=== PATIENT | female | born 1970 | race Caucasian/White ===

== ENCOUNTER → 2016-09-26 | Outpatient (CLI) | payer OTHER ==
[~2016-09-26] MED LIST: DICL75TA PO; FERR1TAB36 PO; FERR324T4 PO; GABA100C4 PO; GNP5TAB6 PO; HYDR-3580 PO; LACTCAP8 PO; LISI10TA3 PO; LOPE2CAP PO; MAPA500T13 PO; MEDR10TA7 PO; OMEP20TA PO; OXYC1TAB63 PO; PRAV20TA2 PO; PRIL20CA9 PO
[2016-09-26 09:40] LABS: HDL CHOLESTEROL 42.6 MG/DL (40.0-60.0)
== END ==
LOC: CLAB 08:07
PROVIDERS: ATTEND Family Medicine
DX: E78.5 Hyperlipidemia, unspecified (principal)
CPT/HCPCS: 36415; 80061

== ENCOUNTER → 2016-12-03 | Outpatient (CLI) | payer OTHER ==
--- NOTE | 2016-12-03 17:02 | RADRPT ---
EXAM DATE/TIME: 12/03/2016 14:10 [place] COMPARISON: No previous studies available for comparison. INDICATIONS : Evaluate for pneumonia, pneumothorax, and communicable disease. Pre-op hysterectomy. MEDICAL HISTORY : None. SURGICAL HISTORY : None. ENCOUNTER: Initial ACUITY: 1 day PAIN SCORE: 0/10 LOCATION: Bilateral chest FINDINGS: PA and lateral views of the chest demonstrate the lungs to be symmetrically aerated without evidence of mass, infiltrate or effusion. The cardiomediastinal contours are unremarkable. Osseous structure s are intact. CONCLUSION: The lungs are clear. Rakan Webster MD on December 03, 2016 at 17:00 Board Certified Radiologist. This report was verified electronically.
--- NOTE | 2016-12-03 23:38 | EKG ---
Date Performed: 12/03/2016 Time Performed: 13:48:04 PTAGE: 46 years EKG: Sinus rhythm LOW QRS VOLTAGE IN PRECORDIAL LEADS BORDERLINE ECG PREVIOUS TRACING : 04/15/2016 11.26 Compared to prior tracing no significant change DOCTOR: Martin Chin Interpretating Date/Time 12/03/2016 23:36:55
== END ==
LOC: HCAV 12:54
PROVIDERS: ATTEND Family Medicine
DX: Z01.818 Encounter for other preprocedural examination (principal); R94.31 Abnormal electrocardiogram [ECG] [EKG]
CPT/HCPCS: 71020; 93005

== ENCOUNTER → 2017-01-17 | Outpatient (CLI) | payer OTHER ==
[~2017-01-17] MED LIST changes: -LACTCAP8 PO
[2017-01-17 14:07] LABS: AUTOMATED NEUTROPHIL # 5.2 TH/MM3 (1.8-7.7); BASOPHIL % 0.7 % (0.0-2.0); EOSINOPHIL % 0.6 % (0.0-4.0); HEMATOCRIT 39.7 % (35.0-46.0); HEMO FLAGS DIFF FINAL; LYMPH % 22.8 % (9.0-44.0); LYMPHOCYTE # 1.7 TH/MM3 (1.0-4.8); MEAN CELL VOLUME 82.6 FL (80.0-100.0); MEAN CORPUSCULAR HEMOGLOBIN 27.5 PG (27.0-34.0); MEAN CORPUSCULAR HGB CONC 33.3 % (32.0-36.0); MONO % 4.2 % (0.0-8.0); NEUT % 71.7 % (16.0-70.0); PLATELET COUNT 221 TH/MM3 (150-450); RED BLOOD COUNT 4.81 MIL/MM3 (4.00-5.30); WHITE BLOOD COUNT 7.3 TH/MM3 (4.0-11.0)
[2017-01-17 14:19] LABS: APTT (PATIENT) 27.6 SEC (24.3-30.1); PROTHROMBIN TIME - PATIENT 11.1 SEC (9.8-11.6)
[2017-01-17 14:34] LABS: ANION GAP 10 MEQ/L (5-15); AST (GOT) 12 U/L (15-37); BICARBONATE 23.1 MEQ/L (21.0-32.0); BLOOD UREA NITROGEN 13 MG/DL (7-18); CHLORIDE 104 MEQ/L (98-107); GLOMERULAR FILTRATION RATE 84 ML/MIN (>89); GLUCOSE,FASTING 81 MG/DL (74-99); POTASSIUM 3.8 MEQ/L (3.5-5.1); SODIUM (NA) 137 MEQ/L (136-145)
[2017-01-17 14:35] LABS: ALT (GPT) 23 U/L (10-53)
[2017-01-17 14:39] LABS: ALKALINE PHOSPHATASE 69 U/L (45-117); TOTAL BILIRUBIN ADULT 0.5 MG/DL (0.2-1.0)
[2017-01-17 14:40] LABS: BHCG SCREEN QUALITATIVE LESS THAN 1 MIU/ML (0-5)
== END ==
LOC: CLAB 13:27
PROVIDERS: ATTEND Obstetrics & Gynecology Gynecologic Oncology
DX: Z01.818 Encounter for other preprocedural examination (principal)
CPT/HCPCS: 36415; 80053; 84703; 85025; 85610; 85730

== ENCOUNTER → 2017-01-22 | Outpatient (CLI) | payer OTHER ==
[2017-01-22 09:42] LABS: HDL CHOLESTEROL 26.7 MG/DL (40.0-60.0)
== END ==
LOC: CLAB 08:54
PROVIDERS: ATTEND Nurse Practitioner Family
DX: E78.5 Hyperlipidemia, unspecified (principal)
CPT/HCPCS: 36415; 80061

== ENCOUNTER 2017-01-27 05:32 | Observation (INO) | payer OTHER ==
[~2017-01-27] VITALS: Ht 157.5 cm; Wt 122.4 kg
[2017-01-27] VITALS (7 sets, daily range): BP systolic 99–132; BP diastolic 61–74; PULSE 70–94; RESP 16–20; TEMP 97–98.9; O2SAT 95–98
[~2017-01-27 05:32] MED LIST changes: -FERR1TAB36 PO; -OXYC1TAB63 PO; -PRIL20CA9 PO
[2017-01-27] MEDS ORDERED: ceFAZolin 2 GM PREMIX 50 ML IV SCH (06:15)
[2017-01-27] MEDS ORDERED: HEPARIN SODIUM - SQ 10,000 UNITS/ML VIAL SQ SCH (06:15)
[2017-01-27] MEDS ORDERED: POVIDONE IODINE 5% (ANTISEPSIS KIT) 4 APPLICATIONS EACH NARE PRN (06:30)
[2017-01-27] MEDS ORDERED: INSULIN HUMAN REGULAR 1,000 UNITS/10 ML VIAL SQ PRN (06:30)
[2017-01-27] MEDS ORDERED: LACTATED RINGER'S 1000 ML IV PRN (06:30)
[2017-01-27] MEDS ORDERED: SODIUM CHLORID 0.9% 500 ML IV PRN (06:30)
[2017-01-27] MEDS ORDERED: CHLORHEXIDINE GLUCONATE 2 % 1 PACK (2 CLOTHS) TOPICAL PRN (06:30)
[2017-01-27] MEDS ORDERED: METOPROLOL TARTRATE 25 MG TAB PO PRN (06:30)
[2017-01-27] MEDS ORDERED: LIDOCAINE 2%/EPINEPHrine 1:100,000 30ML MDV ONE (07:04)
[2017-01-27] MEDS ORDERED: APREPITANT 40 MG CAP ONE (07:08)
[2017-01-27] MEDS ORDERED: MIDAZOLAM HCL 2 MG/2 ML VIAL ONE (07:17)
[2017-01-27] MEDS ORDERED: fentaNYL CITRATE 250 MCG/5 ML AMP ONE ×3 (07:17→12:08)
[2017-01-27] MEDS ORDERED: ACETAMINOPHEN 1000 MG/100 ML VIAL IV ONE (07:17)
[2017-01-27] MEDS ORDERED: DEXAMETHASONE SOD PHOS 4 MG/ML VIAL ONE (07:18)
[2017-01-27] MEDS ORDERED: FAMOTIDINE 20 MG/2 ML VIAL ONE (07:18)
[2017-01-27] MEDS ORDERED: SUGAMMADEX SODIUM 200 MG/2 ML VIAL IV PUSH ONE ×2 (07:18)
[2017-01-27] MEDS ORDERED: LIDOCAINE HCL 1% 50 ML VIAL ONE (07:42)
[2017-01-27] MEDS ORDERED: METHYLENE BLUE 10 MG/ML VIAL OTHER ONE (09:59)
[2017-01-27] MEDS ORDERED: PROPOFOL 200 MG/20 ML AMP IV ONE (10:17)
[2017-01-27] MEDS ORDERED: PHENYLEPH/NS 1000 MCG/10 ML SYR IV ONE (10:17)
[2017-01-27] MEDS ORDERED: ePHEDrine/NS 25 MG/5 ML SYR IV ONE (10:17)
[2017-01-27] MEDS ORDERED: LACTATED RINGER'S 1000 ML INJ 2,000 ML IV ONE (10:18)
[2017-01-27] MEDS ORDERED: ONDANSETRON HCL 4 MG/2 ML VIAL IV PUSH ONE (10:18)
[2017-01-27] MEDS ORDERED: ceFAZolin INJ 1,000 MG VIAL IV ONE (10:50)
[2017-01-27] MEDS ORDERED: MELATONIN 5 MG TAB PO PRN (11:00)
[2017-01-27] MEDS: D5-1/2 NS + KCL 20 MEQ INJ 1,000 ML IV SCH ×2 (11:00→21:07)
[2017-01-27] MEDS ORDERED: PANTOPRAZOLE SOD 20 MG DELAYED RELEASE TAB PO PRN (11:00)
[2017-01-27] MEDS ORDERED: LOPERAMIDE HCL 2 MG CAP PO PRN (11:00)
[2017-01-27] MEDS ORDERED: oxyCODONE/ACETAMINOPHEN 5 MG/325 MG TAB PO PRN (11:00)
[2017-01-27] MEDS ORDERED: diphenhydrAMINE HCL 25 MG CAP PO PRN (11:00)
[2017-01-27] MEDS ORDERED: SODIUM CHLORIDE 0.9% FLUSH 10 ML FLUSH IV FLUSH PRN (11:00)
[2017-01-27] MEDS ORDERED: LORazepam 0.5 MG TAB PO PRN (11:00)
[2017-01-27] MEDS ORDERED: *RESP: ALBUTEROL 2.5 MG/3 ML NEB (PRN) PERIprocedural Use ONLY NEB ONE (11:35)
[2017-01-27] MEDS ORDERED: VECURONIUM BROMIDE 10 MG VIAL IV ONE (12:00)
[2017-01-27] MEDS: KETOROLAC TROMETHAMINE 30 MG/ML (IVP) VIAL IVP SCH ×2 (12:06→18:41)
[2017-01-27] MEDS ORDERED: *morphine SULFATE 8 MG/ML PERIprocedure ONLY ONE ×3 (12:13→12:50)
[2017-01-27] MEDS: GABAPENTIN 100 MG CAP PO SCH ×2 (13:00→18:40)
[2017-01-27] MEDS ORDERED: DO NOT ADM ANY ANTICOAGULANT DRUGS PRN (14:15)
--- NOTE | 2017-01-27 15:08 | PD.ONC.PN ---
Subjective Subjective Remarks Post op note pt is resting in bed states has some abdominal pain denies any n/v Objective Data Date Time Temp Pulse Resp B/P Pulse Ox O2 Delivery O2 Flow Rate FiO2 01/27/17 14:17 97 01/27/17 14:14 97.0 94 18 99/62 01/27/17 13:15 95 17 122/63 96 Nasal Cannula 3 01/27/17 13:06 21 01/27/17 13:06 21 01/27/17 13:00 97.4 96 16 120/62 96 Nasal Cannula 3 01/27/17 12:45 100 18 126/63 95 Nasal Cannula 3 01/27/17 12:32 18 01/27/17 12:30 100 18 125/69 95 Nasal Cannula 3 01/27/17 12:18 18 01/27/17 12:15 105 18 130/70 94 Nasal Cannula 3 01/27/17 12:00 101 17 122/68 95 Nasal Cannula 3 01/27/17 11:45 108 21 122/67 96 Nasal Cannula 4 01/27/17 11:30 107 21 115/63 89 Simple Mask 10 01/27/17 11:28 98.4 108 20 132/74 91 Simple Mask 10 01/27/17 06:30 98.9 87 16 132/74 98 01/27/17 01/27/17 01/27/17 07:00 15:00 23:00 Intake Total 1700 ml Output Total 250 ml Balance 1450 ml Laboratory Results Laboratory Tests Test 01/27/17 06:35 Blood Type O NEGATIVE Antibody Screen NEGATIVE Blood Bank Comment Administered Medications Medications (Trade) Dose Ordered Sig/Dot Route PRN Reason Start Time Stop Time Status Last Admin Dose Admin Lactated Ringer's 1,000 ml @ 30 mls/hr Q24H PRN IV SEE LABEL COMMENTS 01/27/17 06:30 01/30/17 06:29 01/27/17 06:30 Potassium Chloride/Dextrose/ Sod Cl (D5-1/2 NS + KCl 20 Meq Inj) 1,000 ml @ 100 mls/hr Q10H IV 01/27/17 11:00 01/27/17 11:00 Ketorolac Tromethamine (Toradol Inj) 30 mg Q6H IVP 01/27/17 11:00 01/28/17 05:01 01/27/17 12:06 Objective Remarks GENERAL: Well-nourished, well-developed patient. SKIN: Warm and dry. HEAD: Normocephalic. EYES: No scleral icterus. No injection or drainage. NECK: Supple CARDIOVASCULAR: Regular rate and rhythm without murmurs. RESPIRATORY: Breath sounds equal bilaterally. No accessory muscle use. GASTROINTESTINAL: Abdomen soft, SS are c/d/i EXTREMITIES: teds and scds MUSCULOSKELETAL: Adequate muscle tone. NEUROLOGICAL: No obvious focal deficit. Awake, alert, and oriented x3. PSYCHIATRIC: Appropriate mood and affect; insight and judgment normal. Assessment/Plan Problem List: (1) Post-operative state Status: Acute Plan: s/p RA lap hyst with BSO and resection of enlarged lymph node post op orders in chart IS to bedside ADAT OOB to chair Toradol and Percocet for pain anticipate d/c home in morning Yfn Jaquez Jan 27, 2017 15:08
[2017-01-27] MEDS: HYDROmorphone HCL PF 1 MG/ML VIAL IVP PRN ×2 (15:19→19:35)
[2017-01-27] MEDS: ONDANSETRON HCL 4 MG/2 ML VIAL IVP PRN (15:58)
[2017-01-27] MEDS ORDERED: PRAVASTATIN SOD 20 MG TAB PO SCH (21:00)
[2017-01-27] MEDS: SODIUM CHLORIDE 0.9% FLUSH 10 ML FLUSH IV FLUSH SCH (21:00)
[2017-01-27] MEDS ORDERED: METOCLOPRAMIDE HCL 10 MG/2 ML VIAL IV PRN (21:00)
[2017-01-28] VITALS: BP 100/55; PULSE 69; RESP 16; TEMP 96.7; O2SAT 97
[2017-01-28] MEDS: oxyCODONE/ACETAMINOPHEN 5 MG/325 MG TAB PO PRN ×3 (02:00→12:26)
[2017-01-28] MEDS: ONDANSETRON HCL 4 MG/2 ML VIAL IVP PRN (02:01)
[2017-01-28 04:30] VITALS: BP 96/57; PULSE 57; RESP 16; TEMP 96.8; O2SAT 97
[2017-01-28] MEDS: KETOROLAC TROMETHAMINE 30 MG/ML (IVP) VIAL IVP SCH ×2 (04:30)
[2017-01-28] MEDS: D5-1/2 NS + KCL 20 MEQ INJ 1,000 ML IV SCH (06:05)
[2017-01-28] MEDS ORDERED: OXYC1TAB63 PO (07:39)
[2017-01-28] MEDS: GABAPENTIN 100 MG CAP PO SCH ×2 (07:56→12:25)
[2017-01-28 08:00] VITALS: BP 105/56; PULSE 65; RESP 18; TEMP 97.5; O2SAT 93
[2017-01-28 08:03] VITALS: O2SAT 95
[2017-01-28 08:04] LABS: AUTOMATED NEUTROPHIL # 9.7 TH/MM3 (1.8-7.7); BASOPHIL % 0.1 % (0.0-2.0); HEMATOCRIT 35.2 % (35.0-46.0); HEMO FLAGS DIFF FINAL; LYMPH % 7.7 % (9.0-44.0); LYMPHOCYTE # 0.9 TH/MM3 (1.0-4.8); MEAN CORPUSCULAR HEMOGLOBIN 27.3 PG (27.0-34.0); MEAN CORPUSCULAR HGB CONC 33.2 % (32.0-36.0); NEUT % 87.2 % (16.0-70.0); PLATELET COUNT 222 TH/MM3 (150-450); RED BLOOD COUNT 4.29 MIL/MM3 (4.00-5.30); RED CELL DISTRIBUTION WIDTH 14.7 % (11.6-17.2); WHITE BLOOD COUNT 11.2 TH/MM3 (4.0-11.0)
[2017-01-28] MEDS: SODIUM CHLORIDE 0.9% FLUSH 10 ML FLUSH IV FLUSH SCH (08:07)
[2017-01-28 08:10] LABS: BICARBONATE 27.4 MEQ/L (21.0-32.0); POTASSIUM 4.5 MEQ/L (3.5-5.1)
[2017-01-28] MEDS ORDERED: LISINOPRIL 10 MG TAB PO SCH (09:00)
--- NOTE | 2017-01-28 11:54 | MP ---
cc: JOSE ALBERTO DELAROSA MD, KELLY L. MD DATE OF SURGERY: 01/27/2017 PREOPERATIVE DIAGNOSIS 1. Perimenopausal bleeding. 2. Complex atypical endometrial hyperplasia. POSTOPERATIVE DIAGNOSIS 1. Perimenopausal bleeding. 2. Complex atypical endometrial hyperplasia. 3. Prominent right external iliac lymph node. PROCEDURE Robotic-assisted laparoscopic hysterectomy, bilateral salpingo-oophorectomy, right pelvic lymph node excisional biopsy. SURGEON Candy [employer] STATISTICAL PROGRAMMER [place] Medical Record Technician ANESTHESIA General endotracheal. ESTIMATED BLOOD LOSS 100 cc. IV FLUIDS 1900 cc. URINE OUTPUT 200 cc. HISTORY A 47-year-old female with irregular bleeding and a prominent endometrial stripe. She underwent biopsy. Biopsy showed complex atypical endometrial hyperplasia. She was counseled regarding options, was in favor of surgical management. She is seen in the pre-op holding area where the findings and plan of care are again reviewed. Questions were answered. She expressed good understanding and agreed. FINDINGS Uterine cavity sounded to 9 cm. Uterus was prominent, symmetrically enlarged, changes suggestive of adenomyosis. Fallopian tubes grossly appeared normal status post tubal ligation. The ovaries grossly appeared normal. The peritoneal surfaces were without implants. The liver and diaphragm edges were smooth. The omentum, large and small bowel and adjacent mesentery were normal in appearance without implants. There was no appreciable paraaortic or left pelvic lymphadenopathy. However, in the distal right external iliac region adjacent to the iliac artery and vein there was an approximately 1.5 cm isolated prominent lymph node. The preliminary pathology once the uterus was removed showed no overt evidence of a cancer, no evidence of invasion. There was adenomyosis, possible small leiomyomas within the wall of the uterus. DETAILS OF PROCEDURE The patient was taken to the operating room and placed in the dorsal lithotomy position. After general endotracheal anesthesia was administered a timeout was undertaken. The patient was identified by sight recognition and hospital ID bracelet and the proposed procedure was reviewed and confirmed. She was carefully positioned in padded Ruben stirrups and after anesthesia completed acquiring arterial line and IVs, the arms were padded and tucked to the sides. She was further secured to the operating table with eggcrate padding and tape in an across the chest over the shoulder fashion. All sites were noted to be properly aligned with no malalignments or pressure points. She was prepped in sterile fashion, draped below the waist, placed in high lithotomy position. The cervix was grasped. A posterior retractor was placed. She had a moderate rectocele. The uterine cavity sounded. The cervix was dilated and a large VCare manipulator was inserted and secured in the usual fashion. A Salinas catheter was placed in the bladder. She was returned to low lithotomy position. A change of sterile gloves was undertaken. We completed draping in anticipation of laparoscopy, confirmed that an orogastric tube was in the stomach on suction. With manual elevation of the abdominal wall a 5 mm cannula was introduced into the left upper abdomen. Carbon dioxide gas was insufflated and an atraumatic entry was confirmed. A 12 mm cannula was placed in the midline above the umbilicus, an 8 mm cannula placed in the right upper quadrant and the left lateral quadrant. The original 5 mm was exchanged for an 8 mm cannula. She was placed in Trendelenburg position. Peritoneal washings were obtained for cytology. The anatomy was surveyed with findings as described above. Three Ray-Jarek sponges were placed around the root of the small bowel mesentery. Some filmy adhesions had been taken down near the umbilicus consistent with prior surgery in that region. The robotic system was brought into the operative field and attached in the usual fashion. Monopolar scissors, fenestrated bipolar forceps and ProGrasp manipulators were placed in arms #1, 2 and 3 respectively, and I took my place at the surgeon's console. The round ligament on the right side was cauterized and transected. The anterior and posterior leafs of the broad ligament were opened. The right ureter was identified. The right infundibulopelvic ligament was isolated. The intervening peritoneum was opened. The infundibulopelvic ligament was isolated to the level of the pelvic brim where it was cauterized and transected. The posterior peritoneum was opened along the right side of the uterus and cervix and the right vesicouterine peritoneum was taken off the lower uterine segment and cervix. Some adhesions were taken down. The right uterine vessels were skeletonized and cauterized. Attention was directed toward the left side where the left round ligament was isolated, cauterized and transected. The anterior and posterior leafs of the broad ligament were opened. After some adhesions were taken down to mobilize the colon the left ureter was identified. The left ureter was identified. The left infundibulopelvic ligament was isolated to the level of the pelvic brim. The intervening peritoneum was opened. The infundibulopelvic ligament was cauterized and transected. The posterior peritoneum was opened along the left side of the uterus and cervix and the left vesicouterine peritoneum was dissected off the lower uterine segment and cervix. The left uterine vessels were skeletonized, cauterized and transected as were the cardinal, paracervical and uterosacral ligaments. Attention was redirected to the right side where now the uterine vessels were transected. The cardinal, paracervical and uterosacral ligaments were isolated, cauterized and transected in a stepwise fashion. A circumferential colpotomy was performed the cervix from the upper vagina. The specimen was withdrawn transvaginally which included uterus, cervix, tubes and ovaries, and a pneumo-occluder balloon was placed in the vagina to maintain pneumoperitoneum. 0 Vicryl suture was introduced and instruments 1 and 3 were exchanged for needle drivers. The vaginal cuff was closed with full-thickness closure incorporating the posterior peritoneum, edge of the uterosacral ligament, tied via instrument tie. Closure was held on countertraction as a running full-thickness continuous closure was carried across the vaginal cuff to the contralateral corner where it was similarly fixed, secured and tied via instrument tie. The needle was cut and removed. The integrity of the bladder was confirmed by filling the bladder with saline dyed with methylene blue. The bladder distended nicely under pressure. There were no blue areas to suggest thinning of the bladder, certainly no extravasation of dye. There was good margin between the edge of the bladder and the vaginal cuff suture line. Good peristalsis of ureters bilaterally. The bladder was drained. The anatomy was surveyed again with the lymph nodes as described above with a single isolated lymph node. The paravesical space was opened. The peritoneum was opened overlying the lymph node and dissection was carried out overlying the psoas muscle and external iliac artery. With bipolar cautery and sharp dissection this was then carried out circumferentially as the dissection was continued to remove the node from filmy attachments overlying the external iliac vein. With bipolar cautery and sharp dissection the node was removed and placed in the right pericolic gutter. At this point pathology came back showing no overt evidence of invasive cancer. It was felt all reasonable surgical objectives had been completed and so the robotic instruments were removed and the robotic system was disengaged from the operative field. I reentered the bedside under sterile condition. We used an EndoCatch bag to capture the lymph node, brought out through the 12 mm cannula. Each of the three Ray-Jarek sponges that had been placed in the peritoneal cavity were then removed individually. Each were inspected and noted to be removed in their entirety. The pelvis and abdomen were thoroughly irrigated. Small bleeders were rendered hemostatic with bipolar cautery. All sites were hemostatic. Elli hemostatic powder was placed across the vaginal cuff and lateral pelvic sidewalls. Preliminary counts were correct. There were no remaining foreign objects in the peritoneal cavity and attention was directed toward closing. The 12 mm fascial defect was closed with interrupted 0 Vicryl sutures using a needle apparatus under laparoscopic visualization. There were tied securely which rendered the fascia completely airtight and hemostatic. The remaining cannulas were withdrawn. Carbon dioxide gas was removed from the peritoneal cavity. 3-0 Vicryl subcutaneous, 3-0 Vicryl subcuticular and Steri-Strips were used to close these incisions. She was returned to dorsal lithotomy position. Pelvic exam confirmed the vaginal cuff was well-supported and hemostatic. There were no vaginal lacerations, no remaining foreign objects in the vagina. Final counts were correct. She was returned to dorsal supine position and was pending reversal of anesthesia when I left the operating room to precede her to the post-anesthesia care unit. MD ROBBIE Birch/YINA /4:59 PM /11:35 AM
[2017-01-28 12:00] VITALS: BP 112/62; PULSE 73; RESP 18; TEMP 98.9; O2SAT 95
[2017-01-28 12:26] VITALS: RESP 16
--- NOTE | 2017-01-29 11:20 | MD ---
cc: JOSE ALBERTO DELAROSA MD, KELLY L. MD ADMISSION DATE: 01/27/2017 DISCHARGE DATE: 01/28/2017 PROCEDURE 01/27/2013 2017, robotic-assisted laparoscopic hysterectomy, bilateral salpingo-oophorectomy, right pelvic lymph node excisional biopsy. PREOPERATIVE DIAGNOSIS Postmenopausal bleeding, complex atypical endometrial hyperplasia. HOSPITAL COURSE She did well during early hospital course. She remained afebrile, pulse 57-70, respirations 16-18, blood pressure 96 to 122/55-63, O2 saturations greater than or equal to 95%. In's and out's 1700/3250. Labs pending at the time of this dictation. On exam, she is alert and oriented x3 in no acute distress tolerating oral liquids. Salinas catheter to be removed. LUNGS: Clear to auscultation except for mild rales at the bases. CARDIOVASCULAR: Regular rate and rhythm. Incision is clean and dry. IDENTITY ACCESS MANAGEMENT ARCHITECT: No bleeding. ASSESSMENT Postop day #1, doing well in early postop period. Findings at surgery and preliminary pathology discussed. Activities and restrictions reviewed. Questions were answered. She expressed a good understanding. PLAN Anticipate discharge to home after she has been able to void, ambulate and continue to tolerate oral intake. She is to resume her prior medications with the exception that she is to discontinue the Tylenol as the Tylenol plus Percocet is potentially leading to an excessive dose of Tylenol and she has been educated regarding this. She is also to discontinue the Provera as that was a preop medication to address the endometrial abnormality and now that she has had hysterectomy this is no longer necessary. She is also to put on hold the Percocet 7.5 mg and she will have a new prescription for 5 mg tablets and she is instructed to take one or two as needed every four hours and these are to avoid duplication of medication. She is to contact our office in two weeks to schedule follow up or to contact our office sooner should she have any questions or problems between now and the time of scheduled followup. She understands the final pathology is pending and will be discussed at the time of her visit. Our office number is again made available. MD ROBBIE Birch/AMANDEEP /8:00 AM /11:18 AM
== END 2017-01-28 13:24 | disposition home or self-care (01) ==
LOC: HSDC 05:32 → HSDI 11:02 → HOCA 13:33
PROVIDERS: ADMIT Obstetrics & Gynecology Gynecologic Oncology; ATTEND Obstetrics & Gynecology Gynecologic Oncology
DX: N95.0 Postmenopausal bleeding (principal); N85.02 Endometrial intraepithelial neoplasia [EIN]; N80.0 Endometriosis of uterus; R59.9 Enlarged lymph nodes, unspecified; Z98.51 Tubal ligation status
CPT/HCPCS: 00840; 38500; 58552; 80048; 85025; 86850; 86900; 86901; 88305; 88309; 88331; 94150; 94664; 96361; 96374; 96375; 96376; G0378; J0131; J0690; J1100; J1170; J1644; J1885; J2250; J2270; J2370; J2405; J2765; J3010; J3480; J7120; J7613; J8501; 88307

== ENCOUNTER → 2017-03-05 | Outpatient (CLI) | payer OTHER ==
[~2017-03-05] MED LIST changes: -HYDR-3580 PO; +LORA-392 PO; -MAPA500T13 PO; -MEDR10TA7 PO; +OXYC1TAB63 PO; +VIST25CA PO
[2017-03-05 22:39] LABS: HEMOGLOBIN A1a 1.4 %; HEMOGLOBIN A1b 1.6 %; HEMOGLOBIN Ao 85.9 %; HEMOGLOBIN LA1C 1.7 %; HEMOGLOBIN P3 3.5 %
== END ==
LOC: CLAB 09:44
PROVIDERS: ATTEND Nurse Practitioner Family
DX: R73.01 Impaired fasting glucose (principal)
CPT/HCPCS: 36415; 83036

== ENCOUNTER 2017-12-18 12:50 | Emergency (ER) | payer SELFPAY ==
[~2017-12-18 12:50] MED LIST changes: -GNP5TAB6 PO; -LORA-392 PO; +MELA1TAB31 PO; -OMEP20TA PO; +OMEP20TA93 PO
[2017-12-18 12:56] VITALS: BP 157/107; PULSE 74; RESP 16; TEMP 98.4; O2SAT 98
[2017-12-18] MEDS ORDERED: PRED20 PO (13:09)
[2017-12-18] MEDS ORDERED: ROBA750T PO (13:09)
--- NOTE | 2017-12-18 13:10 | PD ---
HPI Chief Complaint: Back/ Neck Pain or Injury Time Seen by Provider: 12:59 Travel History International Travel<30 days: No Contact w/Intl Traveler<30days: No Traveled to known affect area: No History of Present Illness HPI 47-year-old female presents to the emergency department for evaluation of lower back pain that started 2-3 days ago. She denies a traumatic injury. She states the current pain is 10/10, aching, radiates down the legs. Patient states that movement will exacerbate the pain. Lying still helps alleviate the pain. She is on diclofenac for arthritis that she took this morning. No fevers or chills. No loss of bowel or bladder control. No saddle anesthesias. No other symptoms or complaints. Mild severity. She denies reporting history of hysterectomy. PFSH Past Medical History Arthritis: Yes Asthma: No Autoimmune Disease: No Depression: Yes Heart Rhythm Problems: No Cancer: Yes (cervicsal) Cardiovascular Problems: No High Cholesterol: Yes Chemotherapy: No Chest Pain: No Congestive Heart Failure: No COPD: No Cerebrovascular Accident: No Diabetes: No Diminished Hearing: No Endocrine: No GERD: No Genitourinary: No Hepatitis: No Hiatal Hernia: No Immune Disorder: No Kidney Stones: No Musculoskeletal: No Neurologic: No Psychiatric: No Reproductive: No Respiratory: No Immunizations Current: No Migraines: Yes Radiation Therapy: Yes Renal Failure: No Seizures: No Sickle Cell Disease: No Sleep Apnea: No Thyroid Disease: No Ulcer: No : 6 Para: 2 Miscarriage: 3 : 1 Tubal Ligation: Yes Past Surgical History Abdominal Surgery: No AICD: No Arteriovenous Shunt: No Cardiac Surgery: No Section: Yes (X2) Ear Surgery: No Endocrine Surgery: No Eye Surgery: No Genitourinary Surgery: No Gynecologic Surgery: Yes () Insulin Pump: No Joint Replacement: No Oral Surgery: No Pacemaker: No Thoracic Surgery: No Social History Alcohol Use: No Tobacco Use: No Substance Use: No Allergies-Medications (Allergen,Severity, Reaction): Coded Allergies: Fish Containing Products (Unverified Allergy, Severe, Rash, 04/01/17) adhesive (Unverified Allergy, Severe, REDNESS, 04/01/17) broccoli (Unverified Allergy, Severe, Diarrhea, 04/01/17) chocolate flavor (Unverified Allergy, Severe, TRIGGERS IBS, 04/01/17) lactose (Unverified Allergy, Severe, TRIGGERS IBS, 04/01/17) egg (Unverified Allergy, Mild, Diarrhea, 04/01/17) milk (Unverified Allergy, Mild, Diarrhea, 04/01/17) aspirin (Unverified Allergy, Unknown, 04/01/17) Uncoded Allergies: BEANS (Allergy, Severe, Diarrhea, 01/27/17) FRIED FOODS (Allergy, Severe, Diarrhea, 01/27/17) NUTS (Allergy, Severe, TRIGGERS IBS, 01/23/17) VEGETABLE OIL (Allergy, Severe, Diarrhea, 01/27/17) Reported Meds & Prescriptions Reported Meds & Active Scripts Active Vistaril (Hydroxyzine Pamoate) 25 Mg Cap 25 Mg PO TID PRN Diclofenac Sodium DR (Diclofenac Sodium) 75 Mg Tabdr 75 Mg PO BID Oxycodone-Acetaminophen 5-325 mg Tab 1 Tab PO Q4H PRN Pravastatin 20 Mg Tab 20 Mg PO HS Gabapentin 100 Mg Cap 100 Mg PO TID Lisinopril 10 Mg Tab 10 Mg PO DAILY Reported Omeprazole 20 Mg Tab 20 Mg PO DAILY PRN Ferrous Sulfate DR (Ferrous Sulfate) 324 Mg Tabdr 325 Mg PO DAILY Loperamide (Loperamide HCl) 2 Mg Cap 2 Mg PO DIRECTED PRN One capsule after each loose stool. Not to exceed 8 capsules per day. Gnp Melatonin Maximum Str (Melatonin) 5 Mg Tab 5 Mg PO HS PRN Review of Systems Except as stated in HPI: all other systems reviewed are Neg Physical Exam Narrative GENERAL: Well-nourished, well-developed obese female patient, ambulatory. Afebrile. SKIN: Focused skin assessment warm/dry. HEAD: Normocephalic. Atraumatic. EYES: No scleral icterus. No injection or drainage. NECK: Supple, trachea midline. No JVD or lymphadenopathy. CARDIOVASCULAR: Regular rate and rhythm without murmurs, gallops, or rubs. Bilateral pedal pulses are 2+. RESPIRATORY: Breath sounds equal bilaterally. No accessory muscle use. Lung sounds are clear to auscultation. GASTROINTESTINAL: Abdomen soft, non-tender, nondistended. MUSCULOSKELETAL: No cyanosis, or edema. Bilateral upper and lower extremity strength 5/5. All extremities are neurovascularly intact. BACK: No obvious deformity. No CVA tenderness. Patient has tenderness over midline lumbar spine and left lower lumbar paraspinal musculature. No bony step -off or crepitus. Straight leg raise is negative bilaterally. She has full sensation to the distal bilateral lower extremities. Data Data Last Documented VS Vital Signs Date Time Temp Pulse Resp B/P (MAP) Pulse Ox O2 Delivery O2 Flow Rate FiO2 12/18/17 12:56 98.4 74 16 157/107 (124) 98 Orders Orders Orphenadrine Inj (Norflex Inj) (12/18/17 13:15) Dexamethasone Inj (Decadron Inj) (12/18/17 13:15) [facility] Medical Decision Making Medical Screen Exam Complete: Yes Emergency Medical Condition: Yes Medical Record Reviewed: Yes Differential Diagnosis Muscle strain versus spasm versus herniated disc versus sciatica Narrative Course 47-year-old female presents to the emergency department for evaluation of lower back pain. Patient is obese, which probably contributes to her pain. There is no traumatic injury. No red flag symptoms. She is given dexamethasone 8 mg IM and Norflex 60 mg IM. She is Arty on diclofenac for arthritis. She will be discharged with a prescription for prednisone and Robaxin. She is encouraged to follow-up with her primary care physician. The patient was discharged in stable condition with instructions, including return instructions and follow up instructions. Diagnosis Primary Impression: Low back pain Qualified Codes: M54.42 - Lumbago with sciatica, left side Referrals: Primary Care Physician call for appointment Patient Instructions: Acute Low Back Pain (ED), General Instructions Departure Forms: Tests/Procedures, Work Release Enter return to work date: December 21, 2017 Additional Instructions: Continue your prescribed diclofenac for pain. Take prednisone as directed. Start this tomorrow. Take Robaxin as directed as needed. Heating pad on low for 20 minutes 4-5 times daily. Follow-up with a primary care physician. Return to the emergency department for any acute worsening of symptoms. Med/Other Pt SpecificInfo: Prescription(s) given Scripts Prednisone (Prednisone) 20 Mg Tab 40 MG PO DAILY, #10 TAB 0 Refills Take 40 mg (2 tablets) daily for 5 days Prov: Radha Lake 12/18/17 Methocarbamol (Robaxin) 750 Mg Tab 750 MG PO TID Y for MUSCLE SPASM, #21 TAB 0 Refills Prov: Radha Lake 12/18/17 Disposition: 01 DISCHARGE HOME Condition: Stable Radha Lake ELEN December 18, 2017 13:10
[2017-12-18] MEDS ORDERED: ORPHENADRINE INJ 60 MG/2 ML AMP IM ONE (13:15)
[2017-12-18] MEDS ORDERED: DEXAMETHASONE SOD PHOS 4 MG/ML VIAL IM ONE (13:15)
== END 2017-12-18 13:40 | disposition home or self-care (01) ==
LOC: NEPK 12:50
DX: M54.42 Lumbago with sciatica, left side (principal); E78.00 Pure hypercholesterolemia, unspecified; M19.90 Unspecified osteoarthritis, unspecified site
CPT/HCPCS: 96372; 99283; J1100; J2360